=== PATIENT | female | born 1990 | race Caucasian/White ===

== ENCOUNTER → 2018-03-06 | Emergency (ER) | payer OTHER ==
[~2018-03-06] VITALS: Ht 175.3 cm; Wt 90.7 kg
[~2018-03-06] MED LIST: IBUPROFEN800 MG PO
== END | disposition home or self-care (01) ==
LOC: ER 01:58
DX: S83.8X1A Sprain of other specified parts of right knee, initial encounter (principal); X50.3XXA Overexertion from repetitive movements, initial encounter; Y93.89 Activity, other specified; Y92.89 Other specified places as the place of occurrence of the external cause; Y99.8 Other external cause status

== ENCOUNTER 2018-09-06 11:59 | Emergency (ER) | payer OTHER ==
[~2018-09-06] VITALS: Ht 175.3 cm; Wt 90.7 kg
== END 2018-09-06 17:40 | disposition home or self-care (01) ==
LOC: ER 11:59
DX: B34.9 Viral infection, unspecified (principal); J11.1 Influenza due to unidentified influenza virus with other respiratory manifestations

== ENCOUNTER 2019-11-26 10:52 | Emergency (ER) | payer OTHER ==
[~2019-11-26] VITALS: Ht 177.8 cm; Wt 93.0 kg
[2019-11-26] MEDS ORDERED: PROMETH-CODEIN 65 ML PO (13:28)
[2019-11-26] MEDS ORDERED: MUCINEX1200 MG PO (13:28)
[2019-11-26] MEDS ORDERED: ZITHROMAX500 MG PO (13:28)
== END 2019-11-26 15:19 | disposition home or self-care (01) ==
LOC: ER 10:52
DX: J11.1 Influenza due to unidentified influenza virus with other respiratory manifestations (principal); B96.0 Mycoplasma pneumoniae [M. pneumoniae] as the cause of diseases classified elsewhere

== ENCOUNTER 2020-07-28 16:25 | Emergency (ER) | payer OTHER ==
[~2020-07-28] VITALS: Ht 175.3 cm; Wt 93.0 kg
[~2020-07-28 16:25] MED LIST changes: +MUCINEX1200 MG PO; +PROMETH-CODEIN 65 ML PO; +ZITHROMAX500 MG PO
== END 2020-07-28 20:38 | disposition home or self-care (01) ==
LOC: ER 16:25
DX: B34.9 Viral infection, unspecified (principal); R50.9 Fever, unspecified; E86.0 Dehydration; R11.2 Nausea with vomiting, unspecified; Z03.818 Encounter for observation for suspected exposure to other biological agents ruled out